=== PATIENT | male | born 1995 | race Caucasian/White ===

== ENCOUNTER 2024-03-19 23:27 | Emergency (ER) | payer BC, SELFPAY ==
[2024-03-19 23:33] VITALS: BP 135/87; PULSE 65; TEMP 36.3; O2SAT 100; BMI 19.8
[2024-03-20] MEDS: FLUORESCEIN SODIUM 1 MG STRIP OP (00:11)
[2024-03-20] MEDS: TETRACAINE HCL 0.5% OP SOL 80 DROP/4 ML BOTTLE OP (00:12)
[2024-03-20] MEDS: ADACEL DIPH,PERTUSS(ACELL),TET VAC/PF 0.5 ML ADULT SYRINGE IM (00:55)
[2024-03-20] MEDS: ERYTHROMYCIN OP OINT 0.5% 1 GM TUBE OP (00:55)
[2024-03-20] MEDS: ONDANSETRON 4 MG RAPDIS TABLET SL ×2 (00:55)
--- NOTE | 2024-03-20 00:56 | ED.EYEPROB1 ---
HPI - Eye Problem General Chief complaint: Eye Problems Stated complaint: LT EYE ISSUE Time Seen by Provider: 03/19/24 23:30 Source: patient and family Mode of arrival: walk-in Limitations: no limitations History of Present Illness HPI Narrative: This 28-year-old male is brought to the emergency department by his parents for evaluation of a foreign body in his left eye. The patient states he was sitting on the couch watching television when he felt something fly into his left eye. 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 He states he spent the day in side of a truck with sunglasses on and did not experience any eye discomfort during the day. It is possible that he admits that something flew out of his hair into his eye or off his clothes or fingers. 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 He does not wear contact lenses or corrective lenses. He does not know the date of his last tetanus shot. Related Data Home Medications ?Medication ?Instructions ?Recorded ?Confirmed No Known Home Medications 03/19/24 03/19/24 Allergies Allergy/AdvReac Type Severity Reaction Status Date / Time No Known Drug Allergies Allergy Verified 03/19/24 23:36 Review of Systems ROS Status of ROS 10 or more systems reviewed and unremarkable except as noted in history and below Exam Narrative Exam Narrative: Vital signs and Nursing Notes reviewed: Vital signs are stable General: Awake, alert, oriented, anxious adult male, no respiratory distress HEENT: Normocephalic atraumatic, there is blepharospasm of the left eye with conjunctival injection and a visible foreign body at the 5 o'clock position inside of the iris, extraocular muscles are intact, vision is intact Chest: Lungs are clear to auscultation with good air entry, there is no wheezing rhonchi or rales appreciated no accessory muscle use, patient is speaking in complete sentences-no chest wall tenderness to palpation CVS: Regular rate and rhythm S1-S2, no murmurs rubs or gallops, pulses are brisk and equal bilateralyy Skin: Normal in appearance without rash,pallor, petechiae or purpura Neuro: No focal deficits Constitutional Vital Signs, click to edit/add: Last Vital Signs Temp 97.3 F L 03/19/24 23:33 Pulse 65 03/19/24 23:33 Resp 16 03/19/24 23:33 BP 135/87 03/19/24 23:33 Pulse Ox 100 03/19/24 23:33 O2 Del Method Room Air 03/19/24 23:33 Course Vital Signs Vital signs: Vital Signs Temperature 97.3 F L 03/19/24 23:33 Pulse Rate 65 03/19/24 23:33 Respiratory Rate 16 03/19/24 23:33 Blood Pressure 135/87 03/19/24 23:33 Pulse Oximetry 100 03/19/24 23:33 Oxygen Delivery Method Room Air 03/19/24 23:33 Temperature 97.3 F L 03/19/24 23:33 Pulse Rate 65 03/19/24 23:33 Respiratory Rate 16 03/19/24 23:33 Blood Pressure 135/87 03/19/24 23:33 Pulse Oximetry 100 03/19/24 23:33 Oxygen Delivery Method Room Air 03/19/24 23:33 MDM - Eye Problem MDM Narrative Medical decision making narrative: Please see procedure note for full description of MDM Discharge Plan Discharge Stand Alone Forms: Work/School Release, Portal Instructions Chief Complaint: Eye Problems Clinical Impression: Acute foreign body of left cornea Patient Disposition: Home, Self-Care Time of Disposition Decision: 00:27 Condition: Good Prescriptions / Home Meds: No Action No Known Home Medications Print Language: Tamazight Instructions: Eye Foreign Body (ED) Referrals: CHARLEEN PRUITT [Physician] - As soon as possible Physician,Non-Staff, [Primary Care Provider] - 1 week Procedures ED Procedure Instructions Procedures Procedures: Procedure note: Foreign body removal left eye; Alcaine was instilled into the left eye, when anesthesia was obtained a cotton-tipped applicator was gently applied to the area where the visible foreign body was and it was partially removed. The eye was then irrigated. There was still remaining foreign body visible and several additional attempts with a cotton-tipped applicator were used but this was unsuccessful as this foreign body appeared to be too deep for the cotton tip applicator to work. An ophthalmic bur was then used to remove the remainder of the foreign body. The eye was then irrigated with normal saline. I do not appreciate any rust ring or residual foreign body after the procedure. The eye was irrigated with copious normal saline and additional Alcaine was instilled into the eye for pain control. The patient's tetanus was updated. He was given a dose of [place] and Zofran for pain control overnight and 2 [place] and a Zofran to take home for ongoing pain. Erythromycin ointment was also instilled into the left eye and given to the patient to use at home for the next 5 to 7 days. He will be referred to outpatient ophthalmology.
== END 2024-03-20 01:15 | disposition home or self-care (01) ==
PROVIDERS: Emergency Provider Emergency Medicine
DX: T15.02XA Foreign body in cornea, left eye, initial encounter (principal); W44.9XXA Unspecified foreign body entering into or through a natural orifice, initial encounter; Z23 Encounter for immunization
CPT/HCPCS: 65220; 90471; 90715; 99284; Q0162